=== PATIENT | male | born 1970 | race Caucasian/White ===

== ENCOUNTER 2017-10-02 18:44 | Emergency (ER) | payer SELFPAY ==
[~2017-10-02] VITALS: Ht 167.6 cm; Wt 90.9 kg
[2017-10-02 18:47] VITALS: Ht 167.6 cm; Wt 90.9 kg
[2017-10-02 19:15] LABS: BASOPHILS 0.5 % (0-2); EOSINOPHILS 1.3 % (0-7); HEMATOCRIT 35.6 % (42.0-54.0); HEMOGLOBIN 11.7 g/dL (13.5-17.5); IMMATURE GRANULOCYTES 0.3 % (0-5); LYMPHOCYTES 28.6 % (15-50); MCH 28.8 pg (26.0-34.0); MCHC 32.9 g/dL (31.0-37.0); MCV 87.7 fL (80.0-100.0); MEAN PLATELET VOLUME 9.3 fL (7.4-10.4); MONOCYTES 6.4 % (2-11); NEUTROPHILS 62.9 % (40-80); PLATELET COUNT 226 10x3/uL (130-400); RBC 4.06 10x6/uL (4.20-6.10); WBC 11.2 10x3/uL (4.8-10.8)
[2017-10-02 19:38] LABS: ALBUMIN 3.3 g/dL (3.4-5.0); ALKALINE PHOSPHATASE 101 U/L (46-116); ALT (SGPT) 41 U/L (10-68); CALC OSMOLALITY 275 mosm/kg (275-300); CALCIUM 9.2 mg/dL (8.5-10.1); CARBON DIOXIDE 24.2 mmol/L (21.0-32.0); CHLORIDE - SERUM 105 mmol/L (98-107); CREATININE - SERUM 0.7 mg/dL (0.6-1.3); GLUCOSE 101 mg/dL (74-106); POTASSIUM - SERUM 3.3 mmol/L (3.5-5.1); PROTEIN - SERUM 7.1 g/dL (6.4-8.2); SODIUM 138 mmol/L (136-145); UREA NITROGEN 13 mg/dL (7-18); eGFR NON AFRICAN AMERICAN > 90 mL/min (90-120)
[2017-10-02 19:45] LABS: BILIRUBIN - TOTAL 0.09 mg/dL (0.2-1.3)
[2017-10-02 23:22] VITALS: BP 119/67
== END 2017-10-02 23:23 | disposition home or self-care (01) ==
LOC: D.ER 18:44
PROVIDERS: Family Medicine
DX: R11.2 Nausea with vomiting, unspecified (principal); F10.129 Alcohol abuse with intoxication, unspecified

== ENCOUNTER → 2017-12-09 13:04 | Outpatient (CLI) | payer OTHER ==
[2017-10-02 18:47] VITALS: BMI 32.3
--- NOTE | ~2017-12-09 | EC ---
PATIENT:JARED ROGERS DATE OF SERVICE: 12/09/17 SEX: M MEDICAL RECORD: [id number] DATE OF : 68 LOCATION:[facility] AGE OF PATIENT: 47 ADMISSION DATE: 12/09/17 REFERRING PHYSICIAN: INTERPRETING PHYSICIAN: HORACIO SOUSA MD ECHOCARDIOGRAM REPORT ECHO CHARGES 4 ECHO COMPLETE Date: 12/09/17 CLINICAL DIAGNOSIS: DIZZINESS,PALPITATIONS ECHOCARDIOGRAPHIC MEASUREMENTS (adult normal given) AC root (d.<3.7cm) 2.9 cm LV Septum d (<1.2 cm> 1.2 cm Valve Excursion 1.6 cm LV Septum (systole) 1.3 cm Left Atria (s.<4.0cm> 3.7 cm LVPW d(<1.2cm) 1.2 cm RV (d.<2.3cm) 3.4 cm LVPW (sytole) 1.5 cm LV diastole(<5.6CM) 4.5 cm MV E-F(>70mm/sec) cm LV systole 3.2 cm LVOT Diameter 1.6 cm MV exc.(>10mm) 1.4 cm Est.ejection fraction (50-75%) % DOPPLER: LVIT cm/sec A 72.0 cm/sec E 84.0 cm/sec LA cm/sec RVSP 26 mmHg LVOT 111 cm/sec AOP1/2T m/s Asc. Ao 138 cm/sec RVOT 71 cm/sec RA cm/sec PA 120 cm/sec AV Gradient Peak 7.60 mmHg AV Mean 4.35 mmHg AV Area 1.5 cm MV Gradient Peak 4.23 mmHg MV Mean 1.61 mmHg MV Area cm COMMENTS: Finance Professor: Alber GALLARDO Barrel Loader: Tono Sousa TAPE# PACS Pericardial Effusion N DATE OF SERVICE: PROCEDURE: Transthoracic echocardiogram. FINDINGS: 1. Left ventricle is normal with ejection fraction of 60%. Inflow characteristics are normal. 2. The left atrium is normal. 3. The aortic valve is normal. 4. The mitral valve is normal. ECHOCARDIOGRAM REPORT [id number] JARED ROGERS 5. The tricuspid valve has trace tricuspid regurgitation, otherwise normal. RVSP is normal. The right ventricle is mildly dilated, but normal function. 6. The right atrium is normal. 7. The pulmonic valve is normal. CONCLUSIONS: This is a normal echocardiogram for the patient's stated age. TRANSINT:[id number] Voice Confirmation ID: [id number] DOCUMENT ID: [id number] HORACIO SOUSA MD at 1348 CC: [id number] DICTATION DATE: 12/10/17 1020 SENIOR CONTROLS ENGINEER: 12/10/17 1111 DEP CLI 12/09/17 [place] [id number] [place] [id number]
== END | disposition home or self-care (01) ==
LOC: D.ECHO 13:04
DX: R42 Dizziness and giddiness (principal); R07.9 Chest pain, unspecified; R00.2 Palpitations